=== PATIENT | male | born 1980 | race Caucasian/White ===

== ENCOUNTER 2022-09-02 13:00 | Outpatient (CLI) | payer BC | END 2022-09-02 13:01 | disposition home or self-care (01) | LOC: CSHULT 13:00 | PROVIDERS: ATTEND Internal Medicine Nephrology | DX: I12.9 Hypertensive chronic kidney disease with stage 1 through stage 4 chronic kidney disease, or unspecified chronic kidney disease (principal); N18.2 Chronic kidney disease, stage 2 (mild) | CPT/HCPCS: 76770 ==